=== PATIENT | male | born 1980 | race Caucasian/White ===

== ENCOUNTER 2018-08-01 16:17 | Inpatient (IN) ==
[2018-08-01] MEDS ORDERED: *HR* LORazepam 1 MG TABLET PO PRN (16:35)
[2018-08-01] MEDS ORDERED: *HR* LORazepam 2 MG/ML VIAL IM PRN (16:35)
[2018-08-01] MEDS ORDERED: MOM Conc 10 ML UD.LIQ PO PRN (16:35)
[2018-08-01] MEDS ORDERED: Nicotine 2 MG GUM BC PRN (16:35)
[2018-08-01] MEDS ORDERED: Ibuprofen 400 MG TABLET PO PRN (16:35)
[2018-08-01] MEDS ORDERED: Mag Hydrox/Al Hydrox/Simeth 30 ML UDC PO PRN (16:35)
[2018-08-01] MEDS ORDERED: Haloperidol Lactate 5 MG/ML VIAL IM PRN (16:35)
[2018-08-01] MEDS ORDERED: tiZANidine 4 MG TABLET PO PRN (17:52)
[2018-08-01] MEDS: SUBOXONE SL SCH (20:14)
[2018-08-01] MEDS ORDERED: Mirtazapine 15 MG TABLET PO SCH (21:00)
[2018-08-02] MEDS: hydrOXYzine pamoate 25 MG CAPSULE PO PRN ×2 (01:17→20:54)
[2018-08-02] MEDS: SUBOXONE SL SCH ×2 (08:55→20:53)
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
[2018-08-03] MEDS: ARIPiprazole 5 MG TABLET PO SCH (09:11)
--- NOTE | 2018-08-03 10:43 | Psychiatry Progress Note ---
Date of Encounter: 08/03/18 Time of Encounter: 10:37 Subjective Interval history: Pt says having very bad muscle spasms without tinazidine. Doesn't think he can be without it. Would prefer to be off Luvox so he can be on his tinazidine. He reports that his OCD syptoms are less bothersome than the muscle spasms. He reports continued visual hallucinations of figures. he says they get better when he is around people. He reports some problems with sleep last night due to the muscle spasms. He reports fair appetite. No SI. No HI. Some AH, command at times. Review of Systems Constitutional: Denies: fever, chills, weakness, weight change Eyes: Denies: eye pain, vision change Ears, Nose, Throat: Denies: ear pain, throat pain, dental pain, hearing loss, congestion Cardiovascular: Denies: chest pain, palpitations, dyspnea on exertion Neurological: Reports: other (muscle spasms) Psychiatric: Reports: auditory hallucinations, visual hallucinations, hopelessness (intrusive obsessive thoughts) Results - Vital Signs Vital Signs: Temp Pulse Resp BP Pulse Ox 98.4 F 89 18 126/54 100 08/02/18 21:00 08/02/18 21:00 08/02/18 21:00 08/02/18 21:00 08/02/18 21:00 Assessment and Plan (1) Unspecified psychosis Current visit: Yes Status: Acute Additional Plan: Will continue abilify and seroquel for psychosis. Will d/c luvox so pt can go back on tizanidine for muscle spasms. Will monitor OCD symptoms and if not imprved with abilify will try another antideressant. Has been on zoloft and remeron without help Risks, benefits, side effects, alternatives discussed w/pt: Yes Patient agreeable to treatment: Yes Qualifiers: Psychosis type: unspecified psychosis type Qualified Code(s): F29 - Unspecified psychosis not due to a substance or known physiological condition Psychiatry Exam - Constitutional Vitals: Temp Pulse Resp BP Pulse Ox 98.4 F 89 18 126/54 100 08/02/18 21:00 08/02/18 21:00 08/02/18 21:00 08/02/18 21:00 08/02/18 21:00 General appearance: disheveled - Musculoskeletal Gait: normal Station: stiff Strength & Tone: normal for patient - Psychiatric Patient Orientation: Yes Person, Yes Time, Yes Place Level of alertness: Alert Behavior: guarded, suspicious Psychomotor activity: Increased Eye Contact: Fleeting Contact Mood Description: Anxious Affect description: constricted Speech Volume: Normal Speech pattern: normal rate, normal rhythm, normal tone, fluent, spontaneous Language & Vocabulary: consistent with education Thought Process: Intact Thought Content: No Suicidal ideation, No Homicidal ideation, No Overt delusions, Yes Obsessive thoughts Perceptual Disturbances: Yes Auditory hallucinations, Yes Visual hallucinations Attention Span Ability: Capable of Focused Attention Memory Description: Grossly Intact Patient Reliability: Reliable Historian Fund of knowledge: Yes abstraction ability, Yes aware of current events Intelligence Estimate: Average Judgment: Limited Insight: Minimal
[2018-08-03] MEDS: SUBOXONE SL SCH ×2 (10:45→21:07)
[2018-08-03] MEDS: tiZANidine 4 MG TABLET PO PRN (21:38)
--- NOTE | 2018-08-04 09:18 | Psychiatry Progress Note ---
Date of Encounter: 08/04/18 Time of Encounter: 09:16 Subjective Interval history: pt is feeling better physically since he is back on his muscle relaxer. He is tolerating Abilify. He is still having some AH and VH, non-command. He is unable to safely care for himself in the community. He is still paranoid and withdrawn. He denies SI but has some depression, hopelessness, and anhedonia. Review of Systems Neurological: Denies: headache, weakness, numbness, memory loss Psychiatric: Reports: depression, auditory hallucinations, visual hallucinations, hopelessness (intrusive obsessive thoughts) Results - Vital Signs Vital Signs: Temp Pulse Resp BP Pulse Ox 98.6 F 84 16 133/85 97 08/03/18 20:26 08/03/18 20:26 08/03/18 20:26 08/03/18 20:26 08/03/18 20:26 Assessment and Plan (1) Unspecified psychosis Current visit: Yes Status: Acute Additional Plan: Will increase abilify to address psychosis, depression, and obsessive thoughts. Risks, benefits, side effects, alternatives discussed w/pt: Yes Patient agreeable to treatment: Yes Qualifiers: Psychosis type: unspecified psychosis type Qualified Code(s): F29 - Unspecified psychosis not due to a substance or known physiological condition Consult Discharge Plan - Plan Referrals: NONE,PCP [Primary Care Provider] - Psychiatry Exam - Constitutional Vitals: Temp Pulse Resp BP Pulse Ox 98.6 F 84 16 133/85 97 08/03/18 20:26 08/03/18 20:26 08/03/18 20:26 08/03/18 20:26 08/03/18 20:26 General appearance: disheveled - Musculoskeletal Gait: normal Station: relaxed Strength & Tone: normal for patient - Psychiatric Patient Orientation: Yes Person, Yes Time, Yes Place Level of alertness: Alert Behavior: withdrawn Psychomotor activity: Normal Eye Contact: Minimal Contact Mood Description: Depressed Affect description: blunted Speech Volume: Normal Speech pattern: normal rate, normal rhythm, normal tone, fluent, spontaneous Language & Vocabulary: consistent with education Thought Process: Linear, Goal Oriented Thought Content: No Suicidal ideation, No Homicidal ideation, Yes Paranoid delusion Perceptual Disturbances: Yes Auditory hallucinations, Yes Visual hallucinations Attention Span Ability: Capable of Focused Attention Memory Description: Grossly Intact Patient Reliability: Reliable Historian Fund of knowledge: Yes abstraction ability, Yes aware of current events Intelligence Estimate: Average Judgment: Fair Insight: Partial
[2018-08-04] MEDS: SUBOXONE SL SCH ×2 (09:25→21:55)
[2018-08-04] MEDS: ARIPiprazole 5 MG TABLET PO SCH (09:26)
[2018-08-04] MEDS: ARIPiprazole 10 MG TABLET PO SCH (10:42)
[2018-08-04] MEDS: tiZANidine 4 MG TABLET PO PRN (20:30)
[2018-08-04] MEDS: hydrOXYzine pamoate 25 MG CAPSULE PO PRN (20:30)
[2018-08-05] MEDS: SUBOXONE SL SCH ×2 (09:16→20:40)
[2018-08-05] MEDS: ARIPiprazole 10 MG TABLET PO SCH (09:17)
--- NOTE | 2018-08-05 09:44 | Psychiatry Progress Note ---
Date of Encounter: 08/05/18 Time of Encounter: 09:42 Subjective Interval history: Patient says he is feeling better. He reports that auditory and visual hallucinations are improving. He is no longer having any command auditory hallucinations. He says they are close to being back to the baseline and are not upsetting in any way. He reports his sleep appetite and interests are good. He does report some ongoing back pain. He tolerated the increase in Abilify. He has been out on the unit and socialize with peers. Review of Systems Constitutional: Denies: fever, chills, weakness, weight change Neurological: Denies: headache, weakness, numbness, memory loss Psychiatric: Reports: auditory hallucinations, visual hallucinations (hallucinations much improved, close to baseline. ). Denies: hopelessness Results - Vital Signs Vital Signs: Temp Pulse Resp BP Pulse Ox 97.6 F 93 16 141/87 98 08/04/18 20:45 08/04/18 20:45 08/04/18 20:45 08/04/18 20:45 08/04/18 20:45 Assessment and Plan (1) Unspecified psychosis Current visit: Yes Status: Acute Plan: Continue hospitalization, Close observation, Encourage participation in unit milieu, Monitor sleep, Monitor appetite Additional Plan: continue abilify Risks, benefits, side effects, alternatives discussed w/pt: Yes Patient agreeable to treatment: Yes Qualifiers: Psychosis type: unspecified psychosis type Qualified Code(s): F29 - Unspecified psychosis not due to a substance or known physiological condition Consult Discharge Plan - Plan Referrals: NONE,PCP [Primary Care Provider] - Psychiatry Exam - Constitutional Vitals: Temp Pulse Resp BP Pulse Ox 97.6 F 93 16 141/87 98 08/04/18 20:45 08/04/18 20:45 08/04/18 20:45 08/04/18 20:45 08/04/18 20:45 General appearance: age & developmentally appropriate - Musculoskeletal Gait: normal Station: slouched Strength & Tone: normal for patient - Psychiatric Patient Orientation: Yes Person, Yes Time, Yes Place Level of alertness: Alert Behavior: calm, cooperative Psychomotor activity: Normal Eye Contact: Maintains Eye Contact Mood Description: Euthymic/stable Patient description of mood: ok Affect description: congruent with mood, full range Speech Volume: Normal Speech pattern: normal rate Language & Vocabulary: consistent with education Thought Process: Intact Thought Content: Yes Intact Perceptual Disturbances: Yes Auditory hallucinations, Yes Visual hallucinations Attention Span Ability: Capable of Focused Attention Memory Description: Grossly Intact Patient Reliability: Reliable Historian Fund of knowledge: Yes abstraction ability, Yes aware of current events Intelligence Estimate: Average Judgment: Fair Insight: Partial
[2018-08-05] MEDS: tiZANidine 4 MG TABLET PO PRN ×2 (09:59→22:04)
[2018-08-05] MEDS: hydrOXYzine pamoate 25 MG CAPSULE PO PRN (20:40)
[2018-08-06] MEDS: ARIPiprazole 10 MG TABLET PO SCH (08:44)
[2018-08-06] MEDS: SUBOXONE SL SCH (08:45)
[2018-08-06] MEDS: tiZANidine 4 MG TABLET PO PRN (09:13)
--- NOTE | 2018-08-06 09:29 | Discharge Summary ---
Date of Encounter: 08/06/18 Time of Encounter: 09:22 Diagnosis - Discharge Diagnosis (1) Unspecified psychosis Status: Acute Qualifiers: Psychosis type: unspecified psychosis type Qualified Code(s): F29 - Unspecified psychosis not due to a substance or known physiological condition Medications - Discharge Medications Prescriptions: ARIPiprazole [Abilify] 10 mg PO DAILY #30 tablet hydrOXYzine pamoate [HydrOXYzine Pamoate] 25 mg PO TID PRN 90 Days capsule PRN Reason: Anxiety Quetiapine Fumarate [Seroquel] 50 mg PO HS PRN #30 tablet PRN Reason: Insomnia Quetiapine Fumarate [Seroquel] 100 mg PO HS #30 tablet Buprenorphine HCl/Naloxone HCl [Suboxone 8 mg-2 mg Sl Film] 1 each SL BID 08/01/18 [History] Metoprolol [Lopressor] 25 mg PO DAILY 08/01/18 [History] Nicotine Polacrilex [Nicotine Lozenge] 2 mg BC Q2H PRN 08/01/18 [History] Tizanidine HCl 6 mg PO Q8H PRN 08/01/18 [History] ARIPiprazole [Abilify] 10 mg PO DAILY #30 tablet 08/06/18 [Rx] Quetiapine Fumarate [Seroquel] 50 mg PO HS PRN #30 tablet 08/06/18 [Rx] Quetiapine Fumarate [Seroquel] 100 mg PO HS #30 tablet 08/06/18 [Rx] hydrOXYzine pamoate [HydrOXYzine Pamoate] 25 mg PO TID PRN 90 Days capsule 08/06/18 [Rx] Allergy/AdvReac Type Severity Reaction Status Date / Time No Known Allergies Allergy Verified 08/01/18 16:35 Provider Date of admission: 08/01/18 16:17 Primary care physician: PCP NONE Discharging clinician: Mary Grossman Psychiatry Exam - Constitutional Vitals: Temp Pulse Resp BP Pulse Ox 98.4 F 92 18 152/97 97 08/05/18 20:32 08/05/18 20:32 08/05/18 20:32 08/05/18 20:32 08/05/18 20:32 Additional observations: Patient is alert and oriented [address] time and situation, muscle tone grossly intact, speech normal limits for rhythm, rate, content and volume. Muscle tone is normal for patient. Grooming and hygiene are appropriate and eye contact is maintained appropriately. The patient appears age appropriate. Behavior is cooperative. Thought content is negative for suicidal or homicidal thoughts ideations or plans. There are no hallucinations or delusions. Mood is good and affect is reactive, consistent and congruent. Thought process is linear, logical, goal oriented and coherent thought. Memory is intact to recent and remote as the patient is able to recall several items after a delay and can consistently recall childhood information. Language and vocabulary are consistent with education and intelligence is estimated to be average based on education and general fund of information. Concentration and attention are sustained and appropriate. Insight and judgment are intact as the patient agrees with her diagnosis and the need for ongoing mental health treatment. Hospital Course Hospital course: Mr. Purcell is a 37 year old male who was admitted for depression and auditory hallucinations. He was restarted on his Seroquel for hallucinations. His Zoloft and Remeron he was no longer taking at home so these were not restarted. His Abilify was titrated up. He was continued on his home Suboxone.Patient was educated of her diagnosis and the risk-benefit side effects of this alternative treatment options and was monitored for responsiveness and side effects. Mood anxiety sleep and appetite interest improved as did future orientation. Self- harm thoughts subsided, thinking cleared, psychosis resolved, and mood stabilized. Patient was able to attend both individual and group therapy sessions as well as meeting with the psychiatrist daily and urged to discuss any medication or treatment issues or other concerns. The patient was educated primarily by verbal means about their diagnosis and manifestations in their life. The option for treatment including group and individual therapy programming was offered to the patient in the use of medications with all their potential risks, benefits, and side effects were discussed with the patient at length. The patient was given the opportunity to ask questions and was noted to participate in the treatment in the planning process. The patient felt ready and eager to be discharged from the inpatient psychiatric unit to continue on with treatment as an outpatient. The patient agreed that is they were safe for this disposition. The patient was considered to be able to participate in informed consent and decision making with respect to medical, legal, and financial issues of the time of discharge. At the time of discharge the patient adamantly denied any concerns for lethality including suicidal or homicidal thoughts ideations or plans and was future oriented toward ongoing mental health care, medical follow-up and sobriety. Time spent discussing smoking cessation with patient: 3 to 10 minutes Does patient wish to continue nicotine replacement upon disc: Yes (has lozenges ) - Time Spent with Patient Total time spent providing and/or coordinating discharge services: Less than 30 minutes (Interval history reviewed. Available labs reviewed . Psychotherapy provided. Patient had an opportunity to ask questions and address concerns. Patient was in agreement with the treatment plan. The risks benefits and side effects of medications were discussed with the patient, including alternatives and treatment. The patient was educated on the abstaining from any alcohol or illicit substances, following up with all scheduled appointments, and taking all medications as prescribed. The patient was educated on 90 meetings in 90 days and to find a sponsor.) Assessment and Plan - Patient/Caregiver Discharge Instructions Activity: resume usual activities as tolerated Diet: regular diet Additional Instructions: Continue current medications. Follow up with outpatient mental health. Encourage continued therapy in a group or individual setting. The patient was discharged to home. - Follow up Plan Follow up with: NONE,PCP [Primary Care Provider] - Functional capacity at discharge: independent ambulation Overall status at discharge: Stable Disposition: Home, Self-Care Quality - Multiple Antipsychotics Patient discharged on 2 or more antipsychotic medications: Yes - Justification Documentation of: Recommended plan to taper to monotherapy (recommend plan to maximize abilify and wean off seroquel if able to tolerate) Procedures - Procedures Procedures: Medication Management, Crisis Stabilization, Supportive Therapy, Group Therapy, Psychoeducational Therapy
[2018-08-06 09:55] VITALS: BP 140/88
== END 2018-08-06 12:30 | disposition home or self-care (01) | DRG 751 ==
LOC: MERGE 16:17 → 1ANU 16:17 → SUATTDRO 16:17 → 1ANU 16:21
PROVIDERS: ADMIT Psychiatry & Neurology Psychiatry; ATTEND Psychiatry & Neurology Psychiatry